=== PATIENT | female | born 2000 | race Caucasian/White ===

== ENCOUNTER 2021-04-09 13:43 | Emergency (ER) | payer BC ==
[2021-04-09 13:59] VITALS: BP 122/80; PULSE 96; TEMP 97.6; BMI 23.0
[2021-04-09] MEDS ORDERED: SODIUM CHLORIDE 1,000 ML IV STA (15:07)
[2021-04-09] MEDS ORDERED: CEFTRIAXONE 1 GM in DEXTROSE 5%-WATER - 50 ML IVPB ONE (15:21)
[2021-04-09 15:27] LABS: BASO % 0.3 % (0-2.0); EOS % 0.6 % (0-4.5); HEMATOCRIT 41.8 % (32.4-45.2); HEMOGLOBIN 13.9 GM/dL (10.7-15.3); MCH 29.6 pg (25.7-33.7); MCHC 33.3 g/dl (32.0-36.0); MEAN CELL VOLUME 88.9 fl (80-96); MEAN PLT VOLUME 8.3 fl (7.5-11.1); MONO % 5.3 % (3.8-10.2); NEUT % 76.8 % (42.8-82.8); PLATELET COUNT 341 K/MM3 (134-434); RDW 14.7 % (11.6-15.6); WHITE BLOOD COUNT 10.5 K/mm3 (4.0-10.0)
[2021-04-09 15:30] LABS: EPI CELLS 22 /uL (0-25.1); HCG,QUALITATIVE URINE Negative; HYALINE CASTS 1 /uL (0-3.1); URINE APPEARANCE CLEAR; URINE BACTERIA 705 /uL (0-1359); URINE BILIRUBIN NEGATIVE (NEGATIVE); URINE COLOR YELLOW; URINE GLUCOSE (UA) NEGATIVE (NEGATIVE); URINE KETONE NEGATIVE (NEGATIVE); URINE LEUK ESTERASE NEGATIVE (NEGATIVE); URINE NITRITE NEGATIVE (NEGATIVE); URINE PROTEIN NEGATIVE (NEGATIVE); URINE RBC 5 /uL (0-23.9); URINE UROBILINOGEN 0.2 mg/dL (0.2-1.0); URINE WBC 14 /uL (0-25.8)
[2021-04-09 15:40] LABS: ALBUMIN 4.2 g/dl (3.4-5.0); BLOOD UREA NITROGEN 7.9 mg/dL (7-18); CALCIUM 9.5 mg/dL (8.5-10.1)
[2021-04-09] MEDS ORDERED: CEFTRIAXONE 1 GM/50 ML BAG ONE (15:40)
[2021-04-09 15:43] LABS: CREATININE 1.1 mg/dL (0.55-1.3)
[2021-04-09 15:45] LABS: BILIRUBIN,TOTAL 0.3 mg/dL (0.2-1); TOT PROT 8.2 g/dl (6.4-8.2)
[2021-04-09] MEDS ORDERED: KETOROLAC TROMETHAMINE 30 MG/1 ML VIAL IVPUSH ONE (15:53)
[2021-04-09] MEDS ORDERED: KETOROLAC TROMETHAMINE 30 MG/1 ML VIAL ONE (16:43)
== END 2021-04-09 18:45 | disposition home or self-care (01) ==
LOC: JER 13:43
PROC: 3E033GC Introduction of Other Therapeutic Substance into Peripheral Vein, Percutaneous Approach (ICD-10-PCS; principal; 2021-04-09)
DX: R10.9 Unspecified abdominal pain (principal); R30.0 Dysuria; I88.0 Nonspecific mesenteric lymphadenitis
CPT/HCPCS: 36415; 74177-TC; 80053; 81003; 84703; 85025; 87086; 99285-25; Q9967

== ENCOUNTER 2021-04-12 17:23 | Inpatient (IN) | payer BC ==
[2021-04-12] MEDS ORDERED: LIDOCAINE 5% TOPICAL PATCH TP ONE (17:52)
[2021-04-12] MEDS ORDERED: ACETAMINOPHEN 325 MG TABLET (FP) PO ONE (17:52)
[2021-04-12] MEDS ORDERED: LIDOCAINE 5% TOPICAL PATCH ONE (18:03)
[2021-04-12] MEDS ORDERED: ACETAMINOPHEN 325 MG TABLET (FP) ONE (18:03)
[2021-04-12 18:17] LABS: HCG,QUALITATIVE URINE Negative
[2021-04-12 18:27] LABS: EPITHELIAL CELLS MODERATE /hpf
[2021-04-12] MEDS ORDERED: CEFTRIAXONE 1,000 MG in DEXTROSE 5%-WATER - 50 ML IVPB ONE (18:41)
[2021-04-12] MEDS ORDERED: SODIUM CHLORIDE 0.9% 500 ML INFUS.BAG IV ONE (18:42)
[2021-04-12] MEDS ORDERED: cefTRIAXone SODIUM 1 GM VIAL ONE (19:23)
[2021-04-12 19:38] LABS: BASO % 1.5 % (0-2.0); EOS % 0.8 % (0-4.5); HEMATOCRIT 40.7 % (32.4-45.2); HEMOGLOBIN 13.2 GM/dl (10.7-15.3); LYMPH % 6.4 % (8-40); MCH 28.9 pg (25.7-33.7); MCHC 32.6 g/dl (32.0-36.0); MEAN CELL VOLUME 88.7 fl (80-96); MEAN PLT VOLUME 8.4 fl (7.5-11.1); MONO % 5.7 % (3.8-10.2); NEUT % 85.6 % (42.8-82.8); PLATELET COUNT 309 K/MM3 (134-434); RBC 4.58 M/mm3 (3.60-5.2); RDW 13.7 % (11.6-15.6); WHITE BLOOD COUNT 11.7 K/mm3 (4.0-10.8)
[2021-04-12 19:47] LABS: ALBUMIN 4.1 g/dl (3.4-5.0); BILIRUBIN,TOTAL 0.7 mg/dl (0.2-1); CALCIUM 8.8 mg/dl (8.5-10); CREATININE 0.8 mg/dl (0.55-1.3); TOT PROT 7.4 g/dl (6.4-8.2)
[2021-04-12] MEDS ORDERED: ACETAMINOPHEN 325 MG TABLET (FP) PO PRN (21:28)
[2021-04-12] MEDS ORDERED: LIDOCAINE PATCH REMOVAL MC SCH (22:00)
[2021-04-12 22:30] VITALS: BMI 23.8
[2021-04-13 06:53] VITALS: BP 118/68; PULSE 66; TEMP 98.7
[2021-04-13 07:45] LABS: BASO % 0.7 % (0-2.0); HEMATOCRIT 36.6 % (32.4-45.2); HEMOGLOBIN 11.9 GM/dl (10.7-15.3); LYMPH % 23.5 % (8-40); MCH 28.7 pg (25.7-33.7); MCHC 32.4 g/dl (32.0-36.0); MEAN CELL VOLUME 88.7 fl (80-96); MEAN PLT VOLUME 7.9 fl (7.5-11.1); MONO % 10.4 % (3.8-10.2); NEUT % 60.4 % (42.8-82.8); PLATELET COUNT 279 K/MM3 (134-434); RBC 4.12 M/mm3 (3.60-5.2); RDW 13.3 % (11.6-15.6); WHITE BLOOD COUNT 6.6 K/mm3 (4.0-10.8)
[2021-04-13 08:04] LABS: CALCIUM 8.7 mg/dl (8.5-10); CREATININE 0.9 mg/dl (0.55-1.3)
[2021-04-13] MEDS ORDERED: cefTRIAXone SODIUM 1 GM VIAL ONE (09:24)
[2021-04-13] MEDS ORDERED: DEXTROSE 5%-WATER - 50 ML IVPB ONE (09:24)
[2021-04-13] MEDS ORDERED: CEFTRIAXONE 1 GM in DEXTROSE 5%-WATER - 50 ML IVPB SCH (10:00)
[2021-04-13] MEDS ORDERED: LIDOCAINE PATCH REMOVAL MC ONE (17:00)
== END 2021-04-13 12:58 | disposition home or self-care (01) | DRG 690 ==
LOC: FER 17:23 → FM/S 22:01
PROVIDERS: ADMIT Internal Medicine; ATTEND Nurse Practitioner Acute Care
DX: N12 Tubulo-interstitial nephritis, not specified as acute or chronic (principal); R52 Pain, unspecified
CPT/HCPCS: 36415; 80048; 80053; 81003; 81015; 83605; 84703; 85025; 87040; 87077; 87086; 99285-25; C9803; G0378; U0003; U0005